=== PATIENT | female | born 1960 | race Caucasian/White ===

== ENCOUNTER → 2018-01-26 | Outpatient (CLI) | payer OTHER | LOC: M.RAD 01-22 13:30 | DX: M81.0 Age-related osteoporosis without current pathological fracture (principal); Z78.0 Asymptomatic menopausal state ==

== ENCOUNTER → 2018-03-03 | Outpatient (CLI) | payer OTHER | LOC: M.RAD 09:52 | DX: Z12.31 Encounter for screening mammogram for malignant neoplasm of breast (principal) ==

== ENCOUNTER 2021-09-16 11:50 | Emergency (ER) | payer OTHER ==
[~2021-09-16] VITALS: Ht 170.2 cm; Wt 77.1 kg
[2021-09-16] MEDS ORDERED: LISINOPRIL10 MG PO (12:10)
[2021-09-16] MEDS ORDERED: FOSAMAX PLUS D1 EACH PO (12:11)
[2021-09-16] MEDS ORDERED: HYDROCODON-ACE1 EAC7 PO (12:40)
[2021-09-16 13:37] VITALS: BP 138/60
== END 2021-09-16 13:38 | disposition home or self-care (01) ==
LOC: M.ERS 11:50
DX: S92.354A Nondisplaced fracture of fifth metatarsal bone, right foot, initial encounter for closed fracture (principal); I10 Essential (primary) hypertension; Z79.899 Other long term (current) drug therapy; X50.1XXA Overexertion from prolonged static or awkward postures, initial encounter; Y93.89 Activity, other specified; Y92.89 Other specified places as the place of occurrence of the external cause; Y99.8 Other external cause status